=== PATIENT | female | born 1945 | race Caucasian/White ===

== ENCOUNTER 2017-04-16 11:17 | Emergency (ER) | payer MEDICARE ==
[~2017-04-16] VITALS: Ht 157.5 cm; Wt 70.3 kg
[~2017-04-16 11:17] MED LIST: ASPIRIN EC325 MG PO; CLARITIN10 MG OR; LIPITOR80 M1 PO; LISINOPRIL 20MG20 MG PO; METOPROLOL TART50 MG PO; PLAVIX75 MG PO; VIBRAMYCIN HYC100 MG PO
--- NOTE | 2017-04-16 11:37 | Urgent Treatment Center Report ---
See Addendum History of Present Issue Date/Time Seen by Provider 04/16/17 1130 Visit Reason Pt arrived:Walked Presenting Problem:PT C/O CHEST CONGESTION AND COUGH Location if Accident: Onset of symptoms date/time:/ or onset unknown for:MEDICAL HX UNKNOWN Have you (or family members/close friends) recently traveled outside the [place]? N If Yes, where/when: Have you had exposure to infectious disease within the past month? TB? Other? Specify: c/o worsening chest congestion and cough x24 hours. Reports air conditioning broke . Opened all her windows and placed fans in windows. "I just know it is from blowing in all those allergens". Hx of COPD. Worsens w/ allergies seasonally. "I already know what will fix this. Two shots. I don't know what they are and that pack where I take 5 pills one day, 4 the next, then 3 followed by 2 and on the last day, just one. That will fix this." More SOA and wheezing then typical. Albuterol allergy listed but pt reports using symbicort and spiriva daily and albuterol inhaler as needed. Used 2-3 times throughout the night last night. Denies use of nebs. + tobacco abuse x 45 years. Reports trying to quit x years. Currently 0-4 cigs/day. Feeling feverish throughout the night. No documented fever. Source patient Exam Limitations no limitations ALLERGIES Coded Allergies: Sulfa (Sulfonamide Antibiotics) (Mild, 04/16/17) albuterol (Mild, 04/16/17) Home Medications Reported Medications ATORVASTATIN CALCIUM (Lipitor 80MG) 80 MG PO QHS ASPIRIN (Aspirin EC) 325 MG PO DAILY Clopidogrel Bisulfate (Plavix) 75 MG PO DAILY Metoprolol Tartrate (Metoprolol 50MG) 50 MG PO BID LISINOPRIL (Lisinopril) 20 MG PO DAILY History Medical History General CAD? No Angina: Yes CT: Yes Hypertension? Yes Hyperlipidemia? Yes CHF? No DVT? No PE? No COPD? Yes Asthma? No Anemia? No GERD? No Gastric ulcers? No GI Bleed? No Hernia? No Thyroid Problems? No Hypothyroidism? No CVA? No Seizures? No Diabetes? No Renal Insuffiency? No UTI? Yes Stones? No BPH? No GB Disease: Yes Nephritic Syndrome? No Asplenia? No Hepatitis? No Sickle Cell Disease? No Arthritis? No Migraines? No Cataracts? No Glaucoma? No MRSA? No HIV? No TB? No Anxiety? No Depression? No Cancer? Yes Site: NOSE More? No Immunization HX DT/Tetanus 1-4 YRS Flu THIS YR Pneumonia 1-4 YRS Surgical Hx Previous Surgery?Y GALL BLADDER HYSTERECTOMY STENTS X 2 [id number] RUPTURED CYST SX SKIN CA ON NOSE Family History Family HX Diabetes Yes CAD Yes Hypertension Yes Hyperlipidemia Yes Cancer Yes TB No Social History Smoking Hx Smoker: Current Some Day Smoker Tobacco: Yes Type Cigarettes Packs/day < 1 Pack Alcohol Alcohol: No Review of Systems All Other Systems Reviewed and Negative Constitutional see HPI, chills, malaise Eyes denies drainage ENT see HPI, nose discharge, throat pain ("more scratchy then pain"). denies: ear pain, throat swelling. Respiratory see HPI Cardiovascular denies chest pain, denies palpitations Gastrointestinal denies no symptoms reported Skin denies rash Psychiatric/Neurological denies headache Physical Exam Vital Signs Vital Signs Date Time Temp Pulse Resp B/P Pulse O2 O2 Flow FiO2 Ox Delivery Rate 04/16 1131 97.4 77 20 143/92 96 General Appearance no apparent distress Eye Exam - bilateral eye normal exam Ear, Nose, Throat normal ENT inspection Neck non-tender, supple Respiratory Status Yes: trachea midline, chest symmetrical, non tender chest, non productive cough (worse w/ deep breaths). No: respiratory distress, use of accessory muscles, pain on inspiration, pain on expiration, productive cough. Lung Sounds anterior: rhonchi. posterior: rhonchi. bilateral: rhonchi. Cardiovascular regular rate/rhythm, no peripheral edema, no murmur Neurologic alert, oriented x 3 Mental status normal mood/affect Skin normal color, warm/dry Lymphatic no adenopathy Medical Decision Making LABS/Meds/Orders Pt receiving controlled substance in ED? No Results/Orders Current Medication Orders Sig/Estefany Start time Last Medication Dose Route Stop Time Status Admin Albuterol/Ipratropium 0 .STK-MED ONE 04/16 1206 DCr INH Methylprednisolone 0 .STK-MED ONE 04/16 1147 DC Sodium Succinate .ROUTE Albuterol/Ipratropium 3 ML ONCE ONE 04/16 1145 DCr INH 04/16 1146 Methylprednisolone 125 MG ONCE ONE 04/16 1145 DC 04/16 Sodium Succinate IM 04/16 1146 1150 Orders Procedure Date/time Status RT REQUEST DUONEB 04/16 1137 Active Progress [facility] Progress Notes 1 Date 04/16/17 Time 1207 Comment RT at for neb [facility] Progress Notes 2 Date 04/16/17 Time 1212 Comment Pt finished neb and is reporting she already feels better since injection and is ready to go home. CXR and POC reviewed. Pt agrees to FU with PCP Tuesday. Lungs sound better. Occasional end expiratory wheeze. Departure Departure Time of Disposition 1213 Disposition DC Home or Self Care(routine) Clinical Impression Primary Impression: COPD with exacerbation Condition STABLE Referrals Satnos SIBLEY,A.C. (Family) Return to [facility] IMMEDIATELY for new or worsening symptoms OR no noticeable improvement over the next 48-72 hours. 911 for difficulty breathing. Patient Instructions DI for Acute Bronchitis, DI for Chronic Obstructive Pulmonary Disease Additional Instructions * start antibiotic today. Be sure to complete entire prescription even if feeling better. * Monitor Temp. Fu if febrile. * humidifier/vaporizer/hot steamy shower * Albuterol Inhaler every 4-6 hours as needed like we discussed. If unsure how to use it, ask pharmacist to demonstrate how. Should help open airways and improve cough, wheezing, shortness of breath. * Mucinex during the day for your cough and cough suppressant only at night. Be sure to drink lots of water. Insurance may not cover a prescription of mucinex. Might be cheaper to get 400mg tablets and take 2 tablets morning, midday and evening all with lots of water. * Start steroid tomorrow since you had a shot today. Helps with inflammation therefore, cough and wheezing. Follow directions on package. Rvwd side effects. Pt reports they have taken them before. Discharge Counseling Counseled pt/family regarding diagnosis, test results, medications/RX, home care, follow up needs Prescriptions Current Visit Scripts Azithromycin (Zithromycin (Z-ALESSANDRA) 250MG Tab) 250 MG PO DAILY #6 TAB TAKE TWO (2) TABLETS ON DAY 1, THEN ONE (1) TABLET DAY #2 THRU #5 Prednisone (Prednisone 20MG) 20 MG PO BID #10 TAB at 1218
--- NOTE | 2017-04-16 11:37 | Urgent Treatment Center Report ---
See Addendum History of Present Issue Date/Time Seen by Provider 04/16/17 1130 Visit Reason Pt arrived:Walked Presenting Problem:PT C/O CHEST CONGESTION AND COUGH Location if Accident: Onset of symptoms date/time:/ or onset unknown for:MEDICAL HX UNKNOWN Have you (or family members/close friends) recently traveled outside the [place]? N If Yes, where/when: Have you had exposure to infectious disease within the past month? TB? Other? Specify: c/o worsening chest congestion and cough x24 hours. Reports air conditioning broke . Opened all her windows and placed fans in windows. "I just know it is from blowing in all those allergens". Hx of COPD. Worsens w/ allergies seasonally. "I already know what will fix this. Two shots. I don't know what they are and that pack where I take 5 pills one day, 4 the next, then 3 followed by 2 and on the last day, just one. That will fix this." More SOA and wheezing then typical. Albuterol allergy listed but pt reports using symbicort and spiriva daily and albuterol inhaler as needed. Used 2-3 times throughout the night last night. Denies use of nebs. + tobacco abuse x 45 years. Reports trying to quit x years. Currently 0-4 cigs/day. Feeling feverish throughout the night. No documented fever. Source patient Exam Limitations no limitations ALLERGIES Coded Allergies: Sulfa (Sulfonamide Antibiotics) (Mild, 04/16/17) albuterol (Mild, 04/16/17) Home Medications Reported Medications ATORVASTATIN CALCIUM (Lipitor 80MG) 80 MG PO QHS ASPIRIN (Aspirin EC) 325 MG PO DAILY Clopidogrel Bisulfate (Plavix) 75 MG PO DAILY Metoprolol Tartrate (Metoprolol 50MG) 50 MG PO BID LISINOPRIL (Lisinopril) 20 MG PO DAILY History Medical History General CAD? No Angina: Yes [place]: Yes Hypertension? Yes Hyperlipidemia? Yes CHF? No DVT? No PE? No COPD? Yes Asthma? No Anemia? No GERD? No Gastric ulcers? No GI Bleed? No Hernia? No Thyroid Problems? No Hypothyroidism? No CVA? No Seizures? No Diabetes? No Renal Insuffiency? No UTI? Yes Stones? No BPH? No GB Disease: Yes Nephritic Syndrome? No Asplenia? No Hepatitis? No Sickle Cell Disease? No Arthritis? No Migraines? No Cataracts? No Glaucoma? No MRSA? No HIV? No TB? No Anxiety? No Depression? No Cancer? Yes Site: NOSE More? No Immunization HX DT/Tetanus 1-4 YRS Flu THIS YR Pneumonia 1-4 YRS Surgical Hx Previous Surgery?Y GALL BLADDER HYSTERECTOMY STENTS X 2 [id number] RUPTURED CYST SX SKIN CA ON NOSE Family History Family HX Diabetes Yes CAD Yes Hypertension Yes Hyperlipidemia Yes Cancer Yes TB No Social History Smoking Hx Smoker: Current Some Day Smoker Tobacco: Yes Type Cigarettes Packs/day < 1 Pack Alcohol Alcohol: No Review of Systems All Other Systems Reviewed and Negative Constitutional see HPI, chills, malaise Eyes denies drainage ENT see HPI, nose discharge, throat pain ("more scratchy then pain"). denies: ear pain, throat swelling. Respiratory see HPI Cardiovascular denies chest pain, denies palpitations Gastrointestinal denies no symptoms reported Skin denies rash Psychiatric/Neurological denies headache Physical Exam Vital Signs Vital Signs Date Time Temp Pulse Resp B/P Pulse O2 O2 Flow FiO2 Ox Delivery Rate 04/16 1131 97.4 77 20 143/92 96 General Appearance no apparent distress Eye Exam - bilateral eye normal exam Ear, Nose, Throat normal ENT inspection Neck non-tender, supple Respiratory Status Yes: trachea midline, chest symmetrical, non tender chest, non productive cough (worse w/ deep breaths). No: respiratory distress, use of accessory muscles, pain on inspiration, pain on expiration, productive cough. Lung Sounds anterior: rhonchi. posterior: rhonchi. bilateral: rhonchi. Cardiovascular regular rate/rhythm, no peripheral edema, no murmur Neurologic alert, oriented x 3 Mental status normal mood/affect Skin normal color, warm/dry Lymphatic no adenopathy Medical Decision Making LABS/Meds/Orders Pt receiving controlled substance in ED? No Results/Orders Current Medication Orders Sig/Estefany Start time Last Medication Dose Route Stop Time Status Admin Albuterol/Ipratropium 0 .STK-MED ONE 04/16 1206 DCr INH Methylprednisolone 0 .STK-MED ONE 04/16 1147 DC Sodium Succinate .ROUTE Albuterol/Ipratropium 3 ML ONCE ONE 04/16 1145 DCr INH 04/16 1146 Methylprednisolone 125 MG ONCE ONE 04/16 1145 DC 04/16 Sodium Succinate IM 04/16 1146 1150 Orders Procedure Date/time Status RT REQUEST DUONEB 04/16 1137 [facility] Progress Notes 1 Date 04/16/17 Time 1207 Comment RT at for neb [facility] Progress Notes 2 Date 04/16/17 Time 1212 Comment Pt finished neb and is reporting she already feels better since injection and is ready to go home. CXR and POC reviewed. Pt agrees to FU with PCP Tuesday. Lungs sound better. Occasional end expiratory wheeze. Departure Departure Time of Disposition 1213 Disposition DC Home or Self Care(routine) Clinical Impression Primary Impression: COPD with exacerbation Condition STABLE Referrals Santos SIBLEY,A.C. (Family) [facility] for new or worsening symptoms OR no noticeable improvement over the next 48-72 hours. 911 for difficulty breathing. Patient Instructions DI for Acute Bronchitis, DI for Chronic Obstructive Pulmonary Disease Additional Instructions * start antibiotic today. Be sure to complete entire prescription even if feeling better. * Monitor Temp. Fu if febrile. * humidifier/vaporizer/hot steamy shower * Albuterol Inhaler every 4-6 hours as needed like we discussed. If unsure how to use it, ask pharmacist to demonstrate how. Should help open airways and improve cough, wheezing, shortness of breath. * Mucinex during the day for your cough and cough suppressant only at night. Be sure to drink lots of water. Insurance may not cover a prescription of mucinex. Might be cheaper to get 400mg tablets and take 2 tablets morning, midday and evening all with lots of water. * Start steroid tomorrow since you had a shot today. Helps with inflammation therefore, cough and wheezing. Follow directions on package. Rvwd side effects. Pt reports they have taken them before. Discharge Counseling Counseled pt/family regarding diagnosis, test results, medications/RX, home care, follow up needs Prescriptions Current Visit Scripts Azithromycin (Zithromycin (Z-ALESSANDRA) 250MG Tab) 250 MG PO DAILY #6 TAB TAKE TWO (2) TABLETS ON DAY 1, THEN ONE (1) TABLET DAY #2 THRU #5 Prednisone (Prednisone 20MG) 20 MG PO BID #10 TAB at 1218
--- NOTE | 2017-04-16 12:11 | RADIOLOGY REPORT PS360 ---
CHEST(2 VIEWS-NOT PORTABLE) HISTORY: COUGH, CHEST CONGESTION ORDERING PHYSICIAN: RAMON KWONG APRN PATIENT AGE: 72 years COMPARISON: 02/22/2014 FINDINGS: Unremarkable cardiovascular structures. The lungs are clear bilaterally. No lobar consolidation or collapse. There is mild wedging involving T8 not significant changed. No acute bony anomalies. IMPRESSION: No acute finding
[2017-04-16] MEDS ORDERED: PREDNISONE 20MG20 MG PO (12:15)
[2017-04-16] MEDS ORDERED: ZITHROMAX Z PA250 MG PO (12:15)
[2017-04-16 13:12] VITALS: BP 143/92
== END 2017-04-16 13:12 | disposition home or self-care (01) ==
LOC: UTC 11:17
DX: J44.1 Chronic obstructive pulmonary disease with (acute) exacerbation (principal); Z72.0 Tobacco use; Z88.2 Allergy status to sulfonamides; I10 Essential (primary) hypertension; E78.5 Hyperlipidemia, unspecified
CPT/HCPCS: G0463